=== PATIENT | female | born 1975 | race American Indian/Alaskan Native ===

== ENCOUNTER 2017-06-10 00:55 | Emergency (ER) | payer SELFPAY ==
[2017-06-10 01:55] VITALS: BP 143/93
[2017-06-10 02:59] LABS: Basophils % (Auto) 0.6 % (0.0-1.8); Eosinophils # (Auto) 0.1 K/mm3 (0.0-0.4); Eosinophils % (Auto) 0.8 % (0.0-4.3); Hematocrit 24.1 % (30.3-42.9); Hemoglobin 7.4 gm/dl (10.1-14.3); Lymphocytes # (Auto) 2.1 K/mm3 (1.2-5.4); Lymphocytes % (Auto) 31.1 % (13.4-35.0); Mean Corpuscular HGB Conc 31 % (30-34); Monocytes # (Auto) 0.4 K/mm3 (0.0-0.8); Monocytes % (Auto) 6.6 % (0.0-7.3); Platelet Count 303 K/mm3 (140-440); Red Blood Count 3.71 M/mm3 (3.65-5.03)
[2017-06-10 03:02] LABS: Mean Corpuscular Hemoglobin 20 pg (28-32); Mean Corpuscular Volume 65 fl (79-97)
[2017-06-10 08:09] LABS: Bacteria,Urine 4+ /HPF (Negative); Bilirubin,Urine NEG (Negative); Blood,Urine LG (Negative); Color,Urine Red (Yellow); Mucus,Urine FEW /HPF; Nitrite,Urine NEG (Negative); Urobilinogen,Urine < 2.0 mg/dL (<2.0)
[2017-06-10 08:17] LABS: RBC,Urine > 182.0 /HPF (0.0-6.0)
[2017-06-10] MEDS ORDERED: TORADOL IM ONE (15:52)
[2017-06-10] MEDS ORDERED: MACROBID PO ONE (15:53)
--- NOTE | 2017-06-10 16:29 | Emergency Department Report ---
ED Female HPI - General Chief complaint: Abdominal Pain Stated complaint: ABDOMINAL PAIN,VAGINAL BLEEDING Time Seen by Provider: 06/10/17 14:44 Source: patient Mode of arrival: Ambulatory Limitations: No Limitations - History of Present Illness Initial comments: 41-year-old female with a past medical history of sickle cell trait and iron deficiency anemia requiring iron infusions presents to the hospital complains of abdominal pain 2 weeks. Pain complains of epigastric pain. The epigastric pain and "hunger pain". The pain is worse with by mouth intake. No alleviating factors. Patient denies nausea, vomiting, diarrhea, or fever. She also complains of suprapubic pain and a heavy menstrual cycle just started on June 04. Patient used 3 pads an hour. Patient has known uterine fibroids. Patient also has known anemia and last night infusion was in August since she cannot tolerate by mouth iron tablets due to constipation. She complains of mild intermittent dysuria. 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 - Related Data Previous Rx's Medication Instructions Recorded Last Taken Type HYDROcodone/APAP 5-325 [Tolar 1 each PO Q6HR PRN #20 tablet 07/29/14 Unknown Rx 5-325 mg TAB] Famotidine [Pepcid] 20 mg PO BID #20 tablet 06/10/17 Unknown Rx Ferrous Sulfate [Iron] 325 mg PO DAILY #30 tablet 06/10/17 Unknown Rx Ibuprofen [Motrin 600 MG tab] 600 mg PO Q8H PRN #40 tablet 06/10/17 Unknown Rx Lactulose [Kristalose] 20 gm PO QDAY PRN #10 packet 06/10/17 Unknown Rx Nitrofurantoin Monohyd/M-Cryst 100 mg PO BID #10 capsule 06/10/17 Unknown Rx [Macrobid 100 mg Capsule] medroxyPROGESTERone ACETATE 10 mg PO QDAY #7 tablet 06/10/17 Unknown Rx [Provera] Allergies Allergy/AdvReac Type Severity Reaction Status Date / Time No Known Allergies Allergy Verified 07/29/14 09:55 ED Review of Systems ROS: Stated complaint: ABDOMINAL PAIN,VAGINAL BLEEDING Other details as noted in HPI Comment: All other systems reviewed and negative Other: Constitutional: No fevers chills Eyes: No eye pain visual changes ENT: No ear pain or throat pain Neck: Denies pain Respiratory: Denies cough wheezing shortness of breath Cardiovascular: Denies chest pain, palpitations, syncope GI: as per hpi : Denies as per hpi Musculoskeletal: Denies back pain, joint swelling Skin: Denies rash, lesions, erythema Neurologic: Denies headache, numbness, weakness Psychiatric: Denies suicidal ideation, hallucinations ED Past Medical Hx - Past Medical History Additional medical history: Sickle Cell Trait. Iron deficiency anemia. uterine fibroid - Surgical History Past Surgical History?: No - Social History Smoking Status: Current Some Day Smoker Substance Use Type: Alcohol - Medications Home Medications: Home Medications Medication Instructions Recorded Confirmed Last Taken Type HYDROcodone/APAP 5-325 [Tolar 1 each PO Q6HR PRN #20 tablet 07/29/14 Unknown Rx 5-325 mg TAB] Famotidine [Pepcid] 20 mg PO BID #20 tablet 06/10/17 Unknown Rx Ferrous Sulfate [Iron] 325 mg PO DAILY #30 tablet 06/10/17 Unknown Rx Ibuprofen [Motrin 600 MG tab] 600 mg PO Q8H PRN #40 tablet 06/10/17 Unknown Rx Lactulose [Kristalose] 20 gm PO QDAY PRN #10 packet 06/10/17 Unknown Rx Nitrofurantoin Monohyd/M-Cryst 100 mg PO BID #10 capsule 06/10/17 Unknown Rx [Macrobid 100 mg Capsule] medroxyPROGESTERone ACETATE 10 mg PO QDAY #7 tablet 06/10/17 Unknown Rx [Provera] ED Physical Exam - General Limitations: No Limitations - Other Other exam information: General: No limitations, patient is alert in no acute distress Head exam: Atraumatic, normocephalic Eyes exam: Normal appearance ENT: Moist mucous membrane, normal oropharynx Neck exam: Normal inspection, full range of motion, no meningismus nontender Respiratory exam: Clear to auscultation bilateral, no wheezes, rales, crackles Cardiovascular: Normal rate and rhythm, normal heart sounds Abdomen: Soft, nondistended, supra-umbilical abdominal tenderness and suprapubic tenderness, with normal bowel sounds, no rebound, or guarding Extremity: Full range of motion normal inspection no deformity Back: Normal Inspection, full range of motion, no tenderness Neurologic: Alert, oriented x3, cranial nerves intact, no motor or sensory deficit Psychiatric: normal affect, normal mood Skin: Warm, dry, intact ED Course Vital Signs 06/10/17 01:50 Temperature 99.4 F Pulse Rate 95 H Respiratory 18 Rate Blood Pressure 143/93 O2 Sat by Pulse 100 Oximetry - Reevaluation(s) Reevaluation #1: 06/10/17 16:40 Patient given Toradol and Macrobid ED Medical Decision Making - Lab Data Result diagrams: 06/10/17 02:40 Lab Results 06/10/17 06/10/17 06/10/17 Range/Units 02:40 02:40 02:40 WBC 6.9 (4.5-11.0) K/mm3 RBC 3.71 (3.65-5.03) M/mm3 Hgb 7.4 L (10.1-14.3) gm/dl Hct 24.1 L (30.3-42.9) % MCV 65 L (79-97) fl MCH 20 L (28-32) pg MCHC 31 (30-34) % RDW 21.0 H (13.2-15.2) % Plt Count 303 (140-440) K/mm3 Lymph % (Auto) 31.1 (13.4-35.0) % [place] % (Auto) 6.6 (0.0-7.3) % Eos % (Auto) 0.8 (0.0-4.3) % Baso % (Auto) 0.6 (0.0-1.8) % Lymph # 2.1 (1.2-5.4) K/mm3 [place] # 0.4 (0.0-0.8) K/mm3 Eos # 0.1 (0.0-0.4) K/mm3 Baso # 0.0 (0.0-0.1) K/mm3 Seg Neutrophils % 60.9 (40.0-70.0) % Seg Neutrophils # 4.2 (1.8-7.7) K/mm3 HCG, Qual Negative (Negative) Urine Color (Yellow) Urine Turbidity (Clear) Urine pH (5.0-7.0) Ur Specific [place] (1.003-1.030) Urine Protein (Negative) mg/dL Urine Glucose (UA) (Negative) mg/dL Urine Ketones (Negative) mg/dL Urine Blood (Negative) Urine Nitrite (Negative) Urine Bilirubin (Negative) Urine Urobilinogen (<2.0) mg/dL Ur Leukocyte Esterase (Negative) Urine WBC (Auto) (0.0-6.0) /HPF Urine RBC (Auto) (0.0-6.0) /HPF U Epithel Cells (Auto) (0-13.0) /HPF Urine Bacteria (Auto) (Negative) /HPF Urine Mucus /HPF Blood Type AB POSITIVE Antibody Screen Negative 06/10/17 Range/Units Unknown WBC (4.5-11.0) K/mm3 RBC (3.65-5.03) M/mm3 Hgb (10.1-14.3) gm/dl Hct (30.3-42.9) % MCV (79-97) fl MCH (28-32) pg MCHC (30-34) % RDW (13.2-15.2) % Plt Count (140-440) K/mm3 Lymph % (Auto) (13.4-35.0) % [place] % (Auto) (0.0-7.3) % Eos % (Auto) (0.0-4.3) % Baso % (Auto) (0.0-1.8) % Lymph # (1.2-5.4) K/mm3 [place] # (0.0-0.8) K/mm3 Eos # (0.0-0.4) K/mm3 Baso # (0.0-0.1) K/mm3 Seg Neutrophils % (40.0-70.0) % Seg Neutrophils # (1.8-7.7) K/mm3 HCG, Qual (Negative) Urine Color Red (Yellow) Urine Turbidity Cloudy (Clear) Urine pH 6.0 (5.0-7.0) Ur Specific [place] 1.011 (1.003-1.030) Urine Protein 30 mg/dl (Negative) mg/dL Urine Glucose (UA) Neg (Negative) mg/dL Urine Ketones Neg (Negative) mg/dL Urine Blood Lg (Negative) Urine Nitrite Neg (Negative) Urine Bilirubin Neg (Negative) Urine Urobilinogen < 2.0 (<2.0) mg/dL Ur Leukocyte Esterase Mod (Negative) Urine WBC (Auto) 17.0 H (0.0-6.0) /HPF Urine RBC (Auto) > 182.0 (0.0-6.0) /HPF U Epithel Cells (Auto) 3.0 (0-13.0) /HPF Urine Bacteria (Auto) 4+ (Negative) /HPF Urine Mucus Few /HPF Blood Type Antibody Screen - Radiology Data Radiology results: report reviewed - Medical Decision Making Patient provided Toradol in the ED Patient's last hemoglobin from 2013 was 8.1 and today is 7.4 with MCV of 65 Patient's does complain of some chronic fatigue and dyspnea I informed patient that she has symptomatic anemia and may benefit from blood transfusion but she is only 1 point below her baseline. Patient declines transfusion at this time. She prefers to initiate iron tablets with stool softeners and to follow-up with her warp tying machine knotter for iron transfusion Patient feels a bleeding is slowing down somewhat but I will also provide Provera to see if this helps to reduce her vaginal blood flow Only Motrin while being recommended for pain therefore we don't cause additional constipation Pepcid will also be prescribed Patient warned that hemoglobin can continue to drop resulting in worsening shortness of breath, syncope, dizziness, and hypotension and to return if these symptoms develop. Patient would need very close follow-up to time and her hemoglobin level and further management Patient will be covered with UTI antibiotics given urinary symptoms although a clean urine sample wasn't provided. Culture pending - Differential Diagnosis Uterin fibroid, , anemia, and nos Critical Care Time: No Critical care attestation.: If time is entered above; I have spent that time in minutes in the direct care of this critically ill patient, excluding procedure time. ED Disposition Clinical Impression: Menorrhagia, Uterine fibroid, Symptomatic anemia, Iron deficiency anemia, UTI ( urinary tract infection) Disposition: - TO HOME OR SELFCARE Is pt being admited?: No Does the pt Need Aspirin: No Condition: Stable Instructions: Iron Deficiency Anemia (ED), Menorrhagia (ED), Uterine Fibroids ( ED), Urinary Tract Infection in Women (ED) Additional Instructions: Take the medications as prescribed. It is very important that you follow up with your warp tying machine knotter for further possible iron infusion and follow up with your COAL GETTER for further management of your vaginal of bleeding. You have refuse admission and blood transfusion at this time. It is possible that your hemoglobin may continued to drop resulting in worsening anemia symptoms. Please return if symptoms worsen as indicated by your discharge instructions. Please follow-up so that your blood counts can be rechecked. Prescriptions: Famotidine [Pepcid] 20 mg PO BID #20 tablet Ferrous Sulfate [Iron] 325 mg PO DAILY #30 tablet Ibuprofen [Motrin 600 MG tab] 600 mg PO Q8H PRN #40 tablet PRN Reason: Pain Lactulose [Kristalose] 20 gm PO QDAY PRN #10 packet PRN Reason: Constipation medroxyPROGESTERone ACETATE [Provera] 10 mg PO QDAY #7 tablet Nitrofurantoin Monohyd/M-Cryst [Macrobid 100 mg Capsule] 100 mg PO BID #10 capsule Referrals: MADDY RINCON MD [Primary Care Provider] - 3-5 Days your, outpatient coding specialist [Other] - 2-3 Days your, warp tying machine knotter [Other] - 2-3 Days Time of Disposition: 16:50
== END 2017-06-10 17:19 | disposition home or self-care (01) ==
LOC: ED 00:55
DX: D25.9 Leiomyoma of uterus, unspecified (principal); N92.0 Excessive and frequent menstruation with regular cycle; D64.9 Anemia, unspecified; F17.200 Nicotine dependence, unspecified, uncomplicated
CPT/HCPCS: 36415; 81001; 84703; 85025; 86850; 86900; 86901; 87086; 96372; 99283; J1885